=== PATIENT | female | born 1995 | race American Indian/Alaskan Native ===

== ENCOUNTER 2017-01-13 21:18 | Emergency (ER) | payer SELFPAY ==
[2017-01-13 21:52] LABS: Basophils % (Auto) 0.3 % (0.0-1.8); Eosinophils % (Auto) 0.1 % (0.0-4.3); Hematocrit 41.5 % (30.3-42.9); Hemoglobin 13.4 gm/dl (10.1-14.3); Mean Corpuscular HGB Conc 32 % (30-34); Mean Corpuscular Hemoglobin 28 pg (28-32); Mean Corpuscular Volume 86 fl (79-97); Platelet Count 342 K/mm3 (140-440); Red Blood Count 4.81 M/mm3 (3.65-5.03); Red Cell Distribution Width 14.1 % (13.2-15.2); White Blood Count 10.6 K/mm3 (4.5-11.0)
[2017-01-13 22:11] LABS: Anion Gap 19 mmol/L; Blood Urea Nitrogen 12 mg/dL (7-17); Calcium 10.2 mg/dL (8.4-10.2); Carbon Dioxide 29 mmol/L (22-30); Glucose 99 mg/dL (65-100); Potassium 3.9 mmol/L (3.6-5.0); Sodium 140 mmol/L (137-145)
[2017-01-13 22:33] LABS: Bacteria,Urine 1+ /HPF (Negative); Bilirubin,Urine NEG (Negative); Blood,Urine LG (Negative); Ketones,Urine 80 mg/dL (Negative); Leukocyte Esterase,Urine MOD (Negative); Mucus,Urine 3+ /HPF; Nitrite,Urine NEG (Negative)
[2017-01-13 22:36] LABS: RBC,Urine > 182.0 /HPF (0.0-6.0)
--- NOTE | 2017-01-14 03:58 | Emergency Department Report ---
ED N/V/D HPI - General Chief complaint: Nausea/Vomiting/Diarrhea Stated complaint: N/V Time Seen by Provider: 01/14/17 03:51 Source: patient Mode of arrival: Ambulatory Limitations: No Limitations - History of Present Illness Initial comments: Patient reports that she was brought in by ambulance for nausea and vomiting for the last 3 days. She says she feels weak. Denies drinking any food or beverage that caused her to be sick. She said her tonsils were swollen and red and. She feels and she took some Advil. Denies any vaginal bleeding or discharge. Last menstrual period was 12/24/2016 denies any abdominal or back pain. Reports throat at 4 out of 10 with swallowing and feels achy. MD complaint: nausea, vomiting, other (sore throat) Onset/Timin -: days(s) Description of Vomiting: food contents, bilious Associated Abdominal Pain: No Severity: mild Pain Scale: 4 Quality: aching Consistency: intermittent Worsens with: eating, vomiting Context: other (unknown) Associated Symptoms: fever/chills, loss of appetite, malaise, nausea/vomiting, weakness. denies: myalgias, chest pain, cough, diaphoresis, headaches, rash, dysuria, shortness of breath, syncope - Related Data Previous Rx's Medication Instructions Recorded Last Taken Type Promethazine [Phenergan TAB] 25 mg PO Q8HR PRN #15 tab 01/14/17 Unknown Rx Sulfamethoxazole/Trimethoprim 1 each PO BID #20 tablet 01/14/17 Unknown Rx [Bactrim DS TAB] Allergies Allergy/AdvReac Type Severity Reaction Status Date / Time No Known Allergies Allergy Verified 01/13/17 21:38 ED Review of Systems ROS: Stated complaint: N/V Other details as noted in HPI Comment: All other systems reviewed and negative Constitutional: denies: chills, fever Eyes: denies: eye pain ENT: throat pain. denies: congestion Respiratory: no symptoms reported Cardiovascular: denies: chest pain, palpitations, edema, syncope Gastrointestinal: nausea, vomiting. denies: abdominal pain, diarrhea, constipation, hematemesis, melena, hematochezia Genitourinary: denies: urgency, dysuria, frequency, hematuria, discharge, abnormal menses, dyspareunia Skin: denies: rash Neurological: weakness. denies: headache, numbness, paresthesias, confusion, abnormal gait, vertigo ED Past Medical Hx - Past Medical History Previous Medical History?: No - Surgical History Past Surgical History?: No - Family History Family history: no significant - Social History Smoking Status: Never Smoker Substance Use Type: Marijuana - Medications Home Medications: Home Medications Medication Instructions Recorded Confirmed Last Taken Type Promethazine [Phenergan TAB] 25 mg PO Q8HR PRN #15 tab 01/14/17 Unknown Rx Sulfamethoxazole/Trimethoprim 1 each PO BID #20 tablet 01/14/17 Unknown Rx [Bactrim DS TAB] ED Physical Exam - General Limitations: No Limitations General appearance: alert, in no apparent distress - Head Head exam: Present: atraumatic, normocephalic, normal inspection - Eye Eye exam: Present: normal appearance, PERRL, EOMI. Absent: scleral icterus, conjunctival injection, periorbital swelling, periorbital tenderness Pupils: Present: normal accommodation - ENT ENT exam: Present: mucous membranes dry, TM's normal bilaterally, normal external ear exam. Absent: normal exam, normal orophraynx - Expanded ENT Exam Expanded Ear exam: Present: normal external inspection Mouth exam: Present: normal external inspection. Absent: drooling, trismus, muffled voice, tongue normal, tongue elevation, laceration Teeth exam: Present: normal inspection Throat exam: Positive: tonsillar erythema, tonsillomegaly, other (Positive pharyngeal erythema. uvula midline). Negative: tonsillar exudate, R peritonsillar mass, L peritonsillar mass - Neck Neck exam: Present: normal inspection, full ROM, lymphadenopathy (anterior cervical). Absent: tenderness, meningismus - Respiratory Respiratory exam: Present: normal lung sounds bilaterally. Absent: respiratory distress, chest wall tenderness - Cardiovascular Cardiovascular Exam: Present: normal rhythm, tachycardia, normal heart sounds - GI/Abdominal GI/Abdominal exam: Present: soft, normal bowel sounds. Absent: distended, tenderness, guarding, rebound, rigid, mass, bruit, pulsatile mass, hernia - Extremities Exam Extremities exam: Present: normal inspection, full ROM, normal capillary refill. Absent: tenderness, pedal edema, joint swelling, calf tenderness - Back Exam Back exam: Present: normal inspection, full ROM. Absent: tenderness, CVA tenderness (R), CVA tenderness (L), muscle spasm, paraspinal tenderness, vertebral tenderness, rash noted - Neurological Exam Neurological exam: Present: alert, oriented X3, normal gait, reflexes normal. Absent: motor sensory deficit - Psychiatric Psychiatric exam: Present: normal affect, normal mood - Skin Skin exam: Present: warm, dry, intact, normal color. Absent: rash ED Course Vital Signs 01/13/17 01/14/17 21:28 05:06 Temperature 98.8 F Pulse Rate 120 H 82 Respiratory 20 18 Rate Blood Pressure 128/79 Blood Pressure 128/79 121/79 [Right] O2 Sat by Pulse 99 96 Oximetry - Reevaluation(s) Reevaluation #1: 01/14/17 04:11 started on ns ivf x 1 litre, iv zofran iv toradol and iv decadron. negative per laboratory. Reevaluation #2: 01/14/17 05:11 Patient given Reglan 10 mg IV and additional Zofran 4 mg IV. Cooperate with Dr. Palencia on patient's urinalysis proteinuria and [place] amount of blood in urine without any active bleeding. He wants patient to have a CT scan of the abdomen and pelvis without IV contrast. 01/14/17 06:29 Reevaluation #3: 01/14/17 06:29 Patient able to tolerate liquids and said her nausea is better. I discussed diagnosis with her. ED Medical Decision Making - Lab Data Result diagrams: 01/13/17 21:41 01/13/17 21:41 Lab Results 01/13/17 01/13/17 01/13/17 Range/Units 21:41 21:41 Unknown WBC 10.6 (4.5-11.0) K/mm3 RBC 4.81 (3.65-5.03) M/mm3 Hgb 13.4 (10.1-14.3) gm/dl Hct 41.5 (30.3-42.9) % MCV 86 (79-97) fl MCH 28 (28-32) pg MCHC 32 (30-34) % RDW 14.1 (13.2-15.2) % Plt Count 342 (140-440) K/mm3 Lymph % (Auto) 19.1 (13.4-35.0) % [place] % (Auto) 8.1 H (0.0-7.3) % Eos % (Auto) 0.1 (0.0-4.3) % Baso % (Auto) 0.3 (0.0-1.8) % Lymph # 2.0 (1.2-5.4) K/mm3 [place] # 0.9 H (0.0-0.8) K/mm3 Eos # 0.0 (0.0-0.4) K/mm3 Baso # 0.0 (0.0-0.1) K/mm3 Seg Neutrophils % 72.4 H (40.0-70.0) % Seg Neutrophils # 7.7 (1.8-7.7) K/mm3 Sodium 140 (137-145) mmol/L Potassium 3.9 (3.6-5.0) mmol/L Chloride 96.0 L (98-107) mmol/L Carbon Dioxide 29 (22-30) mmol/L Anion Gap 19 mmol/L BUN 12 (7-17) mg/dL Creatinine 0.8 (0.7-1.2) mg/dL Estimated GFR > 60 ml/min BUN/Creatinine Ratio 15.00 % Glucose 99 (65-100) mg/dL Calcium 10.2 (8.4-10.2) mg/dL Urine Color Ceci (Yellow) Urine Turbidity Clear (Clear) Urine pH 5.0 (5.0-7.0) Ur Specific [place] 1.030 (1.003-1.030) Urine Protein 100 mg/dl (Negative) mg/dL Urine Glucose (UA) Neg (Negative) mg/dL Urine Ketones 80 (Negative) mg/dL Urine Blood Lg (Negative) Urine Nitrite Neg (Negative) Urine Bilirubin Neg (Negative) Urine Urobilinogen 2.0 (<2.0) mg/dL Ur Leukocyte Esterase Mod (Negative) Urine WBC (Auto) 4.0 (0.0-6.0) /HPF Urine RBC (Auto) > 182.0 (0.0-6.0) /HPF U Epithel Cells (Auto) 9.0 (0-13.0) /HPF Urine Bacteria (Auto) 1+ (Negative) /HPF Urine Mucus 3+ /HPF Urine HCG, Qual (Negative) 01/13/17 Range/Units Unknown WBC (4.5-11.0) K/mm3 RBC (3.65-5.03) M/mm3 Hgb (10.1-14.3) gm/dl Hct (30.3-42.9) % MCV (79-97) fl MCH (28-32) pg MCHC (30-34) % RDW (13.2-15.2) % Plt Count (140-440) K/mm3 Lymph % (Auto) (13.4-35.0) % [place] % (Auto) (0.0-7.3) % Eos % (Auto) (0.0-4.3) % Baso % (Auto) (0.0-1.8) % Lymph # (1.2-5.4) K/mm3 [place] # (0.0-0.8) K/mm3 Eos # (0.0-0.4) K/mm3 Baso # (0.0-0.1) K/mm3 Seg Neutrophils % (40.0-70.0) % Seg Neutrophils # (1.8-7.7) K/mm3 Sodium (137-145) mmol/L Potassium (3.6-5.0) mmol/L Chloride (98-107) mmol/L Carbon Dioxide (22-30) mmol/L Anion Gap mmol/L BUN (7-17) mg/dL Creatinine (0.7-1.2) mg/dL Estimated GFR ml/min BUN/Creatinine Ratio % Glucose (65-100) mg/dL Calcium (8.4-10.2) mg/dL Urine Color (Yellow) Urine Turbidity (Clear) Urine pH (5.0-7.0) Ur Specific [place] (1.003-1.030) Urine Protein (Negative) mg/dL Urine Glucose (UA) (Negative) mg/dL Urine Ketones (Negative) mg/dL Urine Blood (Negative) Urine Nitrite (Negative) Urine Bilirubin (Negative) Urine Urobilinogen (<2.0) mg/dL Ur Leukocyte Esterase (Negative) Urine WBC (Auto) (0.0-6.0) /HPF Urine RBC (Auto) (0.0-6.0) /HPF U Epithel Cells (Auto) (0-13.0) /HPF Urine Bacteria (Auto) (Negative) /HPF Urine Mucus /HPF Urine HCG, Qual Negative (Negative) Urine culture pending Strep test negative and culture pending - Radiology Data Radiology results: report reviewed CT scan of abdomen and pelvis revealed no evidence of intestinal or urinary tract obstruction. No ileus or enteritis. Appendix is normal. The kidneys are normal without any - Medical Decision Making ED course: He is in here complaining of sore throat and nausea and vomiting in 3 days. Patient given 1 L of IV fluid And initially given Zofran 4 mg IV and Decadron 10 mg IV for her and an enlarged tonsils. Patient was not having any abdominal or back pain or any CVA tenderness. Urine came back with large amount of blood on moderate leukocyte Estrace, positive protein and ketones and negative test. I discussed this case with Dr. Palencia to include patient presentation, clinical findings and lab results. Patient had CT scan of the abdomen without IV contrast which revealed no acute findings. Patient last menstrual period was 12/24/2016 and she denies any vaginal bleeding or discharge. Strep test came back as negative with culture pending. I discussed all lab results and CT scan of the patient. She was given additional Zofran 4 mg IV and Reglan 10 mg IV with relief of nausea. I instructed the patient that she will need to follow-up with a entry level mechanical engineer along with her primary care physician for protein. His head [facility] and her mother is coming to get her today and she'll be going back to [place] and says she will be going back soon and will follow up there. Urine culture sent and pending. Patient was findings for acute cystitis with hematuria, nausea and vomiting that has resolved. Proteinuria and dehydration. Discharged home with prescription for Bactrim DS and Phenergan. Critical care attestation.: If time is entered above; I have spent that time in minutes in the direct care of this critically ill patient, excluding procedure time. ED Disposition Clinical Impression: Acute cystitis with hematuria, Ketonuria, Dehydration, Tonsillitis, Enlarged tonsils Nausea & vomiting Qualifiers: Vomiting type: unspecified Vomiting Intractability: non-intractable Qualified Code(s): R11.2 - Nausea with vomiting, unspecified Proteinuria Qualifiers: Proteinuria type: unspecified Qualified Code(s): R80.9 - Proteinuria, unspecified Disposition: DC-01 TO HOME OR SELFCARE Is pt being admited?: No Does the pt Need Aspirin: No Condition: Stable Instructions: Dehydration (ED), Urinary Tract Infection in Women (ED), Acute Nausea and Vomiting (ED), Tonsillitis (ED) Additional Instructions: Your CT scan was normal and did not show any abnormality. Please follow up with kidney doctor who is a entry level mechanical engineer for protein in urine. Please follow-up with your primary care physician for repeat urine test. Take antibiotic as prescribed. Phenergan transient cause drowsiness so please do not take while driving or operating heavy machinery. Please increase her fluid intake and avoid spicy food. Prescriptions: Promethazine [Phenergan TAB] 25 mg PO Q8HR PRN #15 tab PRN Reason: Nausea Sulfamethoxazole/Trimethoprim [Bactrim DS TAB] 1 each PO BID #20 tablet Referrals: PRIMARY CARE, [Primary Care Provider] - 01/16/17 LOY SMITH MD [Staff Physician] - 01/16/17 [facility] [Outside] - 01/16/17 Forms: Accompanied Note, Work/School Release Form(ED)
[2017-01-14] MEDS ORDERED: ZOFRAN IM ONE (04:03)
[2017-01-14] MEDS ORDERED: TORADOL IV ONE (04:03)
[2017-01-14] MEDS ORDERED: DECADRON IV ONE (04:03)
[2017-01-14] MEDS ORDERED: NACL 0.9% 1000 ML 1,000 ML IV ONE (04:04)
[2017-01-14] MEDS ORDERED: ZOFRAN IV ONE (04:52)
[2017-01-14] MEDS ORDERED: REGLAN ONE (04:52)
[2017-01-14] MEDS ORDERED: REGLAN IV ONE (04:52)
[2017-01-14 05:06] VITALS: BP 121/79
--- NOTE | 2017-01-14 05:34 | Cat Scan Report ---
FINAL REPORT PROCEDURE: CT ABDOMEN PELVIS WO CON TECHNIQUE: Computerized axial tomography of the abdomen and pelvis was performed without intravenous contrast. This study is performed without intravascular contrast material and its sensitivity for abdominal and pelvic pathology, including neoplasms, inflammation, abscess, free fluid, thrombosis, arterial dissection and infarction, is reduced compared with a contrast enhanced study. HISTORY: nausea and vomiting with blood in urine COMPARISON: No prior studies are available for comparison. FINDINGS: Visualized lower thorax: No significant abnormality. Liver: Normal size and attenuation. Spleen: Normal size and attenuation. Gallbladder and biliary system: Normal. Pancreas: Normal. Adrenals: Normal. Kidneys: Normal. GI tract: No obstruction. No ileus or enteritis. The cecum, appendix and colon are normal.. Lymph nodes and mesentery: Normal. Vasculature: Normal. Bladder: Normal. Reproductive organs: Normal. Peritoneum: No free fluid. Musculoskeletal structures: No significant abnormality. Other: None. IMPRESSION: There is no evidence of intestinal urinary tract obstruction. No ileus or enteritis. The appendix is normal..
[2017-01-14] MEDS ORDERED: ROCEPHIN IV ONE (06:28)
[2017-01-14] MEDS ORDERED: ROCEPHIN/NS 1 GM/50 ML 1 GM/50 ML BAG IV ONE ×2 (06:30→06:32)
== END 2017-01-14 07:00 | disposition home or self-care (01) ==
LOC: ED 21:18
DX: R80.9 Proteinuria, unspecified (principal); R82.4 Acetonuria; E86.0 Dehydration; J03.90 Acute tonsillitis, unspecified; R11.2 Nausea with vomiting, unspecified; N30.01 Acute cystitis with hematuria; F12.10 Cannabis abuse, uncomplicated
CPT/HCPCS: 36415; 74176; 80048; 81001; 81025; 85025; 87086; 87116; 87430; 96361; 96365; 96372; 96375; 99284; J0696; J1100; J1885; J2405; J2765; J7030

== ENCOUNTER 2017-01-15 11:25 | Emergency (ER) | payer SELFPAY ==
[2017-01-15] MEDS ORDERED: XYLOCAINE 1% MPF 5 mL INFILTRATI ONE (13:36)
[2017-01-15] MEDS ORDERED: NACL 0.9% 1000 ML 1,000 ML IV ONE (13:36)
[2017-01-15] MEDS ORDERED: REGLAN IV ONE (13:41)
[2017-01-15 14:00] LABS: Basophils % (Auto) 0.5 % (0.0-1.8); Eosinophils % (Auto) 0.1 % (0.0-4.3); Hematocrit 39.1 % (30.3-42.9); Hemoglobin 12.5 gm/dl (10.1-14.3); Mean Corpuscular HGB Conc 32 % (30-34); Mean Corpuscular Hemoglobin 28 pg (28-32); Mean Corpuscular Volume 87 fl (79-97); Platelet Count 313 K/mm3 (140-440); Red Blood Count 4.47 M/mm3 (3.65-5.03); Red Cell Distribution Width 13.4 % (13.2-15.2); White Blood Count 9.3 K/mm3 (4.5-11.0)
[2017-01-15] MEDS ORDERED: ROCEPHIN 250 MG in NACL 0.9% 50 ML IV ONE (14:00)
[2017-01-15] MEDS ORDERED: ROCEPHIN ONE (14:01)
[2017-01-15 14:15] LABS: Anion Gap 18 mmol/L; BUN/Creatinine Ratio 12.85; Blood Urea Nitrogen 9 mg/dL (7-17); Calcium 9.8 mg/dL (8.4-10.2); Carbon Dioxide 28 mmol/L (22-30); Chloride 94.6 mmol/L (98-107); Glucose 87 mg/dL (65-100); Potassium 3.8 mmol/L (3.6-5.0); Sodium 137 mmol/L (137-145)
[2017-01-15 14:16] LABS: Amylase 77 units/L (27-131); Lipase 21 units/L (13-60)
[2017-01-15 15:45] VITALS: BP 136/82
--- NOTE | 2017-01-15 23:02 | Emergency Department Report ---
Entered by CANDICE BRAR, acting as scribe for PACO BENTLEY PA. <PACO BENTLEY - Last Filed: 01/15/17 23:00> ED N/V/D HPI - General Chief complaint: Nausea/Vomiting/Diarrhea Stated complaint: VOMITING Time Seen by Provider: 01/15/17 12:48 Source: patient Mode of arrival: Ambulatory Limitations: No Limitations - History of Present Illness Initial comments: 21 y/o female with no significant PMHx presents to the ED c/o nausea and vomiting that began 5 days ago. She states decreased PO fluid/food intake, but she denies abdominal pain, diarrhea, fever, and chills. Reports having burning upper abdominal pain during her vomiting episodes. Patient states she ate pizza the night before the onset on her symptoms, and states she hasn't been able to keep food/fluids down since then. Patient was seen in this ED on 01/14/2017 for similar symptoms. She was prescribed medication for a UTI and nausea. Notes she had a strep test done, which was negative. Took prescribed medication with no relief, because she vomits the medications up. LMP 3 weeks ago. MD complaint: nausea, vomiting Onset/Timin -: days(s) Description of Vomiting: food contents, watery Associated Abdominal Pain: Yes (present only during vomiting episodes) Radiation: none Severity: mild Pain Scale: 0 Quality: other (burning abdominal pain during vomiting episodes) Consistency: constant Improves with: none Worsens with: eating, vomiting, other (drinking) Associated Symptoms: denies other symptoms, cough (with brown sputum), nausea/ vomiting, other (decreased PO food/fluid intake and sore throat). denies: myalgias, chest pain, diaphoresis, fever/chills, headaches, rash, dysuria, shortness of breath, syncope, weakness - Related Data Previous Rx's Medication Instructions Recorded Last Taken Type Promethazine [Phenergan TAB] 25 mg PO Q8HR PRN #15 tab 01/14/17 Unknown Rx Sulfamethoxazole/Trimethoprim 1 each PO BID #20 tablet 01/14/17 Unknown Rx [Bactrim DS TAB] Bisacodyl [Dulcolax suppos] 10 mg MS QDAY #2 supp.rect 01/15/17 Unknown Rx Doxylamine/Pyridoxine HCl 2 each PO QHS #30 tablet. 01/15/17 Unknown Rx [Tish Beyer 10-10 mg Tablet] Allergies Allergy/AdvReac Type Severity Reaction Status Date / Time No Known Allergies Allergy Verified 01/13/17 21:38 ED Review of Systems Comment: All other systems reviewed and negative Constitutional: no symptoms reported. denies: chills, fever ENT: throat pain. denies: ear pain Respiratory: cough (with brown sputum). denies: orthopnea, shortness of breath , SOB with exertion, SOB at rest, stridor Cardiovascular: denies: chest pain, palpitations Endocrine: other (decreased PO food/liquid intake) Gastrointestinal: nausea, vomiting. denies: abdominal pain, diarrhea, hematemesis Skin: denies: rash, lesions Neurological: denies: headache, weakness ED Past Medical Hx - Past Medical History Previous Medical History?: No - Surgical History Past Surgical History?: Yes Additional Surgical History: - Social History Smoking Status: Never Smoker Substance Use Type: Marijuana - Medications Home Medications: Home Medications Medication Instructions Recorded Confirmed Last Taken Type Promethazine [Phenergan TAB] 25 mg PO Q8HR PRN #15 tab 01/14/17 Unknown Rx Sulfamethoxazole/Trimethoprim 1 each PO BID #20 tablet 01/14/17 Unknown Rx [Bactrim DS TAB] Bisacodyl [Dulcolax suppos] 10 mg MS QDAY #2 supp.rect 01/15/17 Unknown Rx Doxylamine/Pyridoxine HCl 2 each PO QHS #30 tablet. 01/15/17 Unknown Rx [Tish Beyer 10-10 mg Tablet] ED Physical Exam - General Limitations: No Limitations General appearance: alert, in no apparent distress - Head Head exam: Present: atraumatic, normocephalic - Eye Eye exam: Present: normal appearance, PERRL, EOMI Pupils: Present: normal accommodation - ENT ENT exam: Present: mucous membranes moist, TM's normal bilaterally, normal external ear exam - Expanded ENT Exam Expanded Ear exam: Present: normal external inspection (uvula is midline) Mouth exam: Present: normal external inspection, tongue normal. Absent: drooling, trismus, muffled voice, tongue elevation, laceration Teeth exam: Present: normal inspection Throat exam: Positive: normal inspection, other (exterior throat is TTP with no erythema or swelling present). Negative: tonsillar erythema, tonsillomegaly, tonsillar exudate, R peritonsillar mass, L peritonsillar mass - Neck Neck exam: Present: normal inspection, full ROM. Absent: tenderness, meningismus, lymphadenopathy - Respiratory Respiratory exam: Present: normal lung sounds bilaterally. Absent: respiratory distress, wheezes, rales, rhonchi, stridor, accessory muscle use, decreased breath sounds - Cardiovascular Cardiovascular Exam: Present: regular rate, normal rhythm. Absent: systolic murmur, diastolic murmur, rubs, gallop - GI/Abdominal GI/Abdominal exam: Present: soft, normal bowel sounds. Absent: distended, tenderness, guarding, rebound, rigid - Extremities Exam Extremities exam: Present: normal inspection, full ROM - Back Exam Back exam: Present: normal inspection - Neurological Exam Neurological exam: Present: alert, oriented X3 - Psychiatric Psychiatric exam: Present: normal affect, normal mood - Skin Skin exam: Present: warm, dry, intact. Absent: rash ED Course Vital Signs 01/15/17 01/15/17 11:28 15:42 Temperature 98.3 F Pulse Rate 76 71 Respiratory 14 14 Rate Blood Pressure 141/88 Blood Pressure 136/82 [Right] O2 Sat by Pulse 100 100 Oximetry ED Medical Decision Making - Lab Data Result diagrams: 01/15/17 13:44 01/15/17 13:44 - Medical Decision Making 21-year-old female presents with nausea and vomiting for 5 days. ED course: CBC, BMP, lipase and amylase all normal. Patient received 1 L of normal saline, IV Rocephin, Reglan. CT of the abdomen done 2 days prior was normal with no abnormal findings Rocephin was given because patient wad Not been able to take her oral medications for UTI Patient had no episodes of vomiting in the ED stay. Patient is not ill-appearing. By mouth challenge passed with apple juice and crackers Discussed with patient to drink lots of fluid. Discussed the follow-up with a PCP in [place]. Discussed with patient to also follow up with GI doctor when she gets back home to [place] Discuss her symptoms and she encouraged to return to ED for worsening of symptoms. Patient states understanding and will follow instructions. Vital signs stable. Patient is in no acute distress. ED Disposition Disposition: DC-01 TO HOME OR SELFCARE Is pt being admited?: No Does the pt Need Aspirin: No Condition: Stable Instructions: Gastroesophageal Reflux Disease (ED), Acute Nausea and Vomiting ( ED) Additional Instructions: She will follow-up with her GI doctor in [place] Take medicines as prescribed. Soft diet meals Prescriptions: Doxylamine/Pyridoxine HCl [Diclegis Dr 10-10 mg Tablet] 2 each PO QHS #30 tablet. Bisacodyl [Dulcolax suppos] 10 mg MS QDAY #2 supp.rect Referrals: PRIMARY CARE,MD [Primary Care Provider] - 3-5 Days Forms: Accompanied Note, Work/School Release Form(ED) Time of Disposition: 15:30 <ALFONSO AGUILERA - Last Filed: 01/21/17 11:33> ED Medical Decision Making - Lab Data Result diagrams: 01/15/17 13:44 01/15/17 13:44 This documentation as recorded by the ZONIA kendrick JASMINE,accurately reflects the service I personally performed and the decisions made by ,PACO BENTLEY PA.
== END 2017-01-15 15:42 | disposition home or self-care (01) ==
LOC: ED 11:25
DX: R11.2 Nausea with vomiting, unspecified (principal); R10.10 Upper abdominal pain, unspecified; F12.10 Cannabis abuse, uncomplicated
CPT/HCPCS: 36415; 80048; 82150; 83690; 84702; 84703; 85025; 96361; 96365; 96375; 99283; J0696; J2765; J7030